=== PATIENT | male | born 1995 | race Asian ===

== ENCOUNTER 2019-01-03 15:39 | Emergency (ER) | payer OTHER ==
[~2019-01-03] VITALS: Ht 167.6 cm; Wt 68.9 kg
[2019-01-03 15:51] VITALS: BP_SYST 119
--- NOTE | 2019-01-03 17:00 | NUR ---
Patient to [facility] for evaluation.
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
--- NOTE | 2019-01-03 17:13 | NUR ---
Patient to radiology for films
--- NOTE | 2019-01-03 17:55 | NUR ---
ER at bedside examining patient.
[2019-01-03 18:25] VITALS: BP_SYST 110
--- NOTE | 2019-01-03 18:25 | NUR ---
Patient given written and verbal discharge instructions and verbalizes understanding. ER MD discussed with patient the results and treatment provided. Patient in stable condition. ID arm band removed. Rx of Naprosyn given. Patient educated on pain management and to follow up with PMD. Pain Scale 0. Opportunity for questions provided and answered. Medication side effect fact sheet provided. Patient left ER in no acute distress, able to ambulat without difficulty with slow, steady gait. Abrasions cleansed with NS and dressed with Kerlix prior to discharge. Patient tolerated well.
== END 2019-01-03 18:25 | disposition home or self-care (01) ==
LOC: SED 15:39
DX: S20.219A Contusion of unspecified front wall of thorax, initial encounter (principal); S40.812A Abrasion of left upper arm, initial encounter; S40.811A Abrasion of right upper arm, initial encounter; S30.811A Abrasion of abdominal wall, initial encounter; V89.2XXA Person injured in unspecified motor-vehicle accident, traffic, initial encounter; Y93.89 Activity, other specified; Y92.89 Other specified places as the place of occurrence of the external cause; Y99.8 Other external cause status
CPT/HCPCS: 71046-TC; 72110; 72220-TC; 99283